=== PATIENT | male | born 1985 | race Two or more races ===

== ENCOUNTER 2019-02-24 15:14 | Emergency (ER) | payer BC ==
[~2019-02-24] VITALS: Ht 182.9 cm; Wt 90.0 kg
[2019-02-24] MEDS ORDERED: ondansetron/PF 4mg/2ml inj IV ONE (15:35)
[2019-02-24] MEDS ORDERED: normal saline 1000ML IV soln IVB ONE (15:35)
[2019-02-24] MEDS ORDERED: ketorolac trometh. 30mg/ml inj. IV ONE (15:35)
[2019-02-24 16:03] LABS: ALANINE AMINOTRANSFERASE 43 U/L (12-78); ALBUMIN 3.5 G/DL (3.4-5.0); ALBUMIN/GLOBULIN RATIO 0.7 (1.1-1.5); ALKALINE PHOSPHATASE 187 IU/L (46-116); ANION GAP 15 (8-16); ASPARTATE AMINO TRANSFERASE 43 U/L (10-37); BASOPHILS # (AUTO) 0.1 X10'3 (0-0.2); BASOPHILS % (AUTO) 0.6 % (0-1); BILIRUBIN,TOTAL 1.3 MG/DL (0.1-1.0); BLOOD UREA NITROGEN 13 MG/DL (7-18); BUN/CREATININE RATIO 14.9 (5.4-32.0); CALCIUM 9.6 MG/DL (8.5-10.1); CHLORIDE 95 MMOL/L (99-107); CREATININE 0.87 MG/DL (0.60-1.10); EOSINOPHILS # (AUTO) 0.1 X10'3 (0-0.9); GLUCOSE 297 MG/DL (70-104); LYMPHOCYTES # (AUTO) 1.5 X10'3 (1.1-4.8); MEAN CORPUSCULAR HEMOGLOBIN 34.2 PG (27.0-31.0); POTASSIUM 3.3 MMOL/L (3.5-5.1); SODIUM 133 MMOL/L (135-145); TOTAL CARBON DIOXIDE 23.1 MMOL/L (24-32); TOTAL PROTEIN 8.3 G/DL (6.4-8.2); eGFR > 90 ML/MIN
[2019-02-24 16:05] LABS: EOSINOPHILS % (AUTO) 0.7 % (0-6); HEMATOCRIT 45.4 % (42.0-52.0); LYMPHOCYTES % (AUTO) 15.2 % (21-51); MEAN CORPUSCULAR HGB CONC 35.2 g/dL (33.0-36.5); MEAN CORPUSCULAR VOLUME 97.3 FL (78-98); MEAN PLATELET VOLUME 8.8 FL (7.4-10.4); MONOCYTES % (AUTO) 10.1 % (2-12); NEUTROPHILS % (AUTO) 73.4 % (42-75); PLATELET COUNT 108 X10'3 (140-440); RED BLOOD COUNT 4.67 X10'6 (4.70-6.10); RED CELL DISTRIBUTION WIDTH 14.8 % (11.5-14.5); WHITE BLOOD COUNT 9.6 X10'3 (4.5-11.0)
[2019-02-24] MEDS ORDERED: CefTRIAXone inj 250 MG in normal saline 50ml IV soln 50 ML IV ONE (16:05)
[2019-02-24] MEDS ORDERED: NAPR-56 PO (16:06)
[2019-02-24] MEDS ORDERED: DOXY100C43 PO (16:06)
[2019-02-24 16:21] LABS: CLARITY,URINE CLEAR (Clear); GLUCOSE, URINE >=1000 mg/dl (Neg); KETONES,URINE >=80 mg/dl (Neg); LEUKOCYTE ESTERASE ,URINE NEGATIVE (Neg); NITRITES, URINE NEGATIVE (Neg); OCCULT BLOOD,URINE SMALL (Neg); PROTEIN,URINE 30 mg/dl (Neg)
[2019-02-24 16:28] LABS: UA COLLECTION TYPE URINAL
[2019-02-24 16:29] LABS: COLOR,URINE DARK YELLOW (Yellow)
[2019-02-24 16:33] LABS: WBC,URINE 20-30 /HPF (0-4)
[2019-02-24 16:34] LABS: BACTERIA,URINE FEW /HPF (Neg); MUCUS STRANDS FEW /LPF (Neg); SQUAMOUS EPITHELIAL CELL,UR FEW /LPF (FEW); TRANSITIONAL EPI CELLS,URINE FEW /HPF
[2019-02-24 16:35] LABS: WBC CLUMPS,URINE MODERATE /HPF (NEGATIVE)
[2019-02-24 17:14] VITALS: BP 137/75
== END 2019-02-24 17:16 | disposition home or self-care (01) ==
LOC: ER 15:15
DX: N45.1 Epididymitis (principal); E11.65 Type 2 diabetes mellitus with hyperglycemia; Z79.899 Other long term (current) drug therapy; W21.03XA Struck by baseball, initial encounter; Y93.64 Activity, baseball; Y92.89 Other specified places as the place of occurrence of the external cause; Y99.8 Other external cause status
CPT/HCPCS: 36415; 76870; 80053; 81001; 85025; 87088; 87491; 87591; 96365; 96375; 99284; J0696; J1885; J2405; J7030; 87077; 87186; J7040

== ENCOUNTER 2019-03-07 12:55 | Emergency (ER) | payer BC ==
[~2019-03-07] VITALS: Ht 182.9 cm; Wt 90.0 kg
[~2019-03-07 12:55] MED LIST: DOXY100C43 PO; NAPR-56 PO
[2019-03-07 13:59] LABS: EOSINOPHILS # (AUTO) 0.1 X10'3 (0-0.9); LYMPHOCYTES # (AUTO) 0.9 X10'3 (1.1-4.8); MONOCYTES # (AUTO) 0.3 X10'3 (0-0.9)
[2019-03-07 14:13] LABS: ALANINE AMINOTRANSFERASE 40 U/L (12-78); ALBUMIN 3.4 G/DL (3.4-5.0); ALBUMIN/GLOBULIN RATIO 0.8 (1.1-1.5); ALKALINE PHOSPHATASE 198 IU/L (46-116); ANION GAP 13 (8-16); ASPARTATE AMINO TRANSFERASE 40 U/L (10-37); BILIRUBIN,TOTAL 1.3 MG/DL (0.1-1.0); BLOOD UREA NITROGEN 9 MG/DL (7-18); BUN/CREATININE RATIO 11.4 (5.4-32.0); CALCIUM 8.6 MG/DL (8.5-10.1); CHLORIDE 103 MMOL/L (99-107); CREATININE 0.79 MG/DL (0.60-1.10); GLUCOSE 285 MG/DL (70-104); POTASSIUM 3.8 MMOL/L (3.5-5.1); SODIUM 139 MMOL/L (135-145); TOTAL PROTEIN 7.7 G/DL (6.4-8.2); eGFR > 90 ML/MIN
[2019-03-07 14:14] LABS: PARTIAL THROMBOPLASTIN TIME 26 SECONDS (22-32)
[2019-03-07 14:27] VITALS: BP 126/76
[2019-03-07 14:29] LABS: BASOPHILS % (AUTO) 0.7 % (0-1); EOSINOPHILS % (AUTO) 1.9 % (0-6); HEMATOCRIT 37.4 % (42.0-52.0); HEMOGLOBIN 13.2 g/dl (14.0-17.9); LYMPHOCYTES % (AUTO) 15.1 % (21-51); MEAN CORPUSCULAR HEMOGLOBIN 34.3 PG (27.0-31.0); MEAN CORPUSCULAR VOLUME 97.6 FL (78-98); MEAN PLATELET VOLUME 8.3 FL (7.4-10.4); MONOCYTES % (AUTO) 5.6 % (2-12); NEUTROPHILS # (AUTO) 4.7 X10'3 (1.8-7.7); NEUTROPHILS % (AUTO) 76.7 % (42-75); PLATELET COUNT 92 X10'3 (140-440); RED BLOOD COUNT 3.83 X10'6 (4.70-6.10); RED CELL DISTRIBUTION WIDTH 14.4 % (11.5-14.5); WHITE BLOOD COUNT 6.1 X10'3 (4.5-11.0)
[2019-03-07 14:45] LABS: MEAN CORPUSCULAR HGB CONC 35.2 g/dL (33.0-36.5)
== END 2019-03-07 15:57 | disposition home or self-care (01) ==
LOC: ER 12:55
DX: S70.12XA Contusion of left thigh, initial encounter (principal); I10 Essential (primary) hypertension; E11.9 Type 2 diabetes mellitus without complications; Z79.899 Other long term (current) drug therapy; X50.1XXA Overexertion from prolonged static or awkward postures, initial encounter; Y93.67 Activity, basketball; Y92.89 Other specified places as the place of occurrence of the external cause; Y99.8 Other external cause status
CPT/HCPCS: 36415; 80053; 85025; 85610; 85730; 93971; 99284

== ENCOUNTER 2019-12-22 09:35 | Outpatient (CLI) | payer BC | END 2019-12-22 23:59 | disposition home or self-care (01) | LOC: RAD 09:35 | PROVIDERS: ATTEND Family Medicine | DX: K70.30 Alcoholic cirrhosis of liver without ascites (principal) | CPT/HCPCS: 76700 ==